=== PATIENT | male | born 1940 | race Caucasian/White ===

== ENCOUNTER 2022-12-16 08:58 | Outpatient (CLI) | payer MEDICARE, SELFPAY ==
--- NOTE | ~2022-12-16 | XR_ITS ---
EXAMINATION: XR chest 2V 12/16/2022 09:18 INDICATION: Cough PROCEDURE: 2 view chest COMPARISON: 12/23/2015 FINDINGS: The lungs are clear. Calcified granuloma right upper thorax. Mild scalloping of the right d iaphragm. The cardiomediastinal silhouette is within normal limits. There are no pleural effusions. There is no pneumothorax suspected. Moderate lower thoracic spondylosis with accentuated kyphosis. IMPRESSION: 1: NO ACUTE CARDIOPULMONARY DISEASE. Reviewed, dictated and finalized at location []
== END 2022-12-16 08:59 | disposition home or self-care (01) ==
PROVIDERS: PCP Family Medicine; Visit Provider Nurse Practitioner Family
DX: R05.9 Cough, unspecified (principal)
CPT/HCPCS: 71046

== ENCOUNTER 2025-02-07 09:18 | Outpatient (CLI) | payer MEDICARE, SELFPAY ==
--- OUTSIDE RECORDS SUMMARY | 2025-02-07 09:27 | XMS_ITS | Continuity of Care Document ---
Author Organization [facility] [place] Address [address] [place] [address] Phone Care Team Providers Care Adventure Education Teacher Name Role Phone Poncho Rae Unavailable Unavailable Procedures Procedure Date Eye Exam & Treatment Ophthalmoscopy Eye Exam, New Patient Advance Directives Directive Yes / No Effective Date File Name No Information Encounters Encounter Description Practice Location Reason(s) For Visit Diagnoses Date Provider Providers Copied on Encounter [facility], [address], [place], [place], [id number], tel:[phone] [facility] No Information 0 Kyra Isaac. [address] [place], [place], [facility], [place]. tel:[phone] Referring Provider: Lemuel richardson, [facility], [facility] [address], [facility]. tel:[phone] [facility], [address], [place], [place], [id number], tel:[phone] [facility] No Information 0 Sierra Hdez. [facility], [facility] [address], [facility], [place]. tel:[phone] Family History Family Member Type Diagnosis Age At Onset No Information Payers Payer name Insurance type Covered republican ID Authoriza tion(s) Medicare [facility] [id number] [facility] CI [id number] Social History Type Description Quantity Date Captured Comments Sex Male Smoking Status No Information Chief Complaint And Reason For Visit No Information Reason For Referral Reason For Referral No Information History Of Present Illness Encounter Date Complaint History Of Prese nt Illness No Information Functional Status Date Functional Assessmen t No Information Instructions Date Instruction Additional Infor mation No Information Assessments Type Assessment Date No Information Patient Care Teams Name Effective Dates (start - stop) Status Members No Information
--- OUTSIDE RECORDS SUMMARY | 2025-02-07 09:27 | XMS_ITS | Patient Health Record ---
Author Organization [facility] - [address] Address [address] [place] [address] Care Team Providers Care Line Out Man Name Role Phone PAWEL CAMACHO Primary Care Provider Reason For Referral No Information Medications Medication SIG (Take, Route, Frequency, Duration) Notes Start Date End Date Status Lisinopril 5 MG 1/2 tablet Oral Once a day; Duration: 30 days Not-Taking Metoprolol Succinate ER 25 MG Oral; Duration: 30 Not-Taking Aspirin 81 81 MG 1 tablet Orally Once a day; Duration: 30 day(s) Active Atorvastatin Calcium 40 MG 1 tablet Oral Once a day; Duration: 30 days Not-Taking Clopidogrel Bisulfate 75 MG 1 tablet Ora lly Once a day; Duration: 30 days Not-Taking Isosorbide Dinitrate 20 MG 1 tablet Oral Twice a day; Duration: 30 days Not-Taking hydroCHLOROthiazide 12.5 MG 1 tablet in the morning Orally Once a day; Duration: 30 day(s) 06/08/2020 Not-Taking Tamsulosin HCl 0.4 MG Oral; Duration: 90 Active Problems Problem Type SNOMED Code ICD Code Onset Dates Problem Status W/U Status Risk Notes Problem Hyperlipidaemia (87847162) Hyperlipidemia, unspecified hyperlipidemia type (E78.5) Active confirmed Problem Chest pain (11366846) Chest pain (R07.9) Active confirmed Problem Coronary artery disease (66941765) CAD (coronary artery disease) (I25.10) Active confirmed Problem Cardiomyopathy associated with another disorder (243575344) Non-ischemic cardiomyopathy (I42.8) Active confirmed Problem Takotsubo cardiomyopathy (396070233) Takotsubo cardiomyopathy (I51.81) Active confirmed Problem Intermittent claudication due to atherosclerosis of artery of limb (finding) (337476602) Atherosclerosis of lower extremity with claudication (I70.219) Active confirmed Plan Of Treatment No Information Insurance Providers Payer Name Payer Address Payer Phone Subscriber Number Group Number Insured Name Patient Relationship to Insured Coverage Start Date Coverage End Date [facility] [address] [address] [place] [address] [id number] Heaven Andrade Self - patient is the insured 0 0 Medical (General) History Medical History History ICD Code Takotsubo cardiomyopathy I51.81 CAD (coronary artery disease) I25.10 Chest pain R07.9 Surgical History Surgery Date(Month/Year) Cath 05/2020 Hospitalization History Reason Date(Month/Year) [facility]-Cath 05/2020
--- NOTE | 2025-02-07 09:30 | ECG_ITS ---
Test Date: 2025-02-07 09:32:49 Measurements Intervals Robbins Rate: 86 P: 71 AL: 159 QRS: 253 QRSD: 137 T: 55 QT: 381 QTc: 457 Interpretive Statements SINUS RHYTHM RIGHT AXIS DEVIATION RIGHT BUNDLE BRANCH BLOCK CONSIDER INFERIOR INFARCT, AGE INDETERMINATE BASELINE ARTIFACT- I, II, III, AVR, AVL, AVF, V4 ABNORMAL ECG No previous ECG available for comparison Electronically Signed On 02-07-2025 09:34:44 CDT by David Castillo D.O.
== END 2025-02-07 09:19 | disposition home or self-care (01) ==
LOC: ANHSURGERY 09:24
PROVIDERS: PCP Family Medicine; Visit Provider Surgery
DX: K43.0 Incisional hernia with obstruction, without gangrene (principal); Z87.891 Personal history of nicotine dependence
CPT/HCPCS: 36415; 86850; 86900; 86901; 93005

== ENCOUNTER 2025-02-12 01:26 | Day surgery (SDC) | payer MEDICARE, SELFPAY ==
--- NOTE | 2025-02-05 13:14 | PC.NURSE ---
Report to the Outpatient Waiting Room, entrance under the green pavilion located off [facility], at time _10 AM on date _02/12/25 . Planned Procedure Time: _1200 NOON .? Time changes happen often and if your time is changed the preop area will call you the afternoon before. - You and your visitor will be asked to self-screen and do not enter if you have any COVID symptoms. Please call surgeon if you need to reschedule. - A mask is optional within the hospital at this time. Patients may have clear liquids (water, carbonated beverages, clear teas, apple juice) until 3 hours prior to surgery ( 9AM) with a maximum of 20 ounces. - No food from midnight until time of surgery and no smoking, or chewing tobacco (or any form of nicotine). No chewing gum, candy or mints. Take only the following medications with a SIP of water on the morning of surgery: __DULOXETINE DO NOT STOP ANY OF YOUR OTHER PRESCRIPTION MEDICATIONS PRIOR TO SURGERY EXCEPT THE FOLLOWING Hold all vitamins and supplements for 3 days per anesthesiologist.LAST DOSE 02/08/25 Medications to discontinue per physician NONE Please no make-up, nail south korean, hairspray, perfume, deodorant, or body powder the day of surgery.? No jewelry (including any body piercings) or valuables the day of surgery, leave them at home.? Please take a shower or bath the night before, or the morning of, surgery with an antibacterial soap.? Wear comfortable, loose fitting clothing.? Children are encouraged to wear pajamas. - Jewelry must be removed prior to entering the operating room.? Rings and piercings that are not removed may be cut off. - The hospital will not accept responsibility for valuables.? - Please leave all valuables, including medications, at home the day of surgery. If you are going home after surgery, a licensed buggy driver must drive you home.? - NO public transportation without another adult if you receive anesthesia. - We recommend that an adult stay with you for 24 hours following discharge. - We also recommend that you do not drive, make important decision, drink alcoholic beverages, or take any drugs that were not prescribed by your health care provider for at least 24 hours after your discharge time. Follow any additional instructions given to you from your surgeon. Telephone instructions given to ___PATIENT_AND WIFE and asked if any additional questions and then verbalized understanding. Patient advised to call surgeon office or pre surgery nurse liaison [phone] if any additional questions.
[2025-02-05 13:35] VITALS: BMI 29.3
[2025-02-12] VITALS (13 sets, daily range): BP systolic 112–153; BP diastolic 57–82; PULSE 85–106; RESP 10–20; TEMP 37.2; O2SAT 90–99
--- OUTSIDE RECORDS SUMMARY | 2025-02-12 01:30 | XMS_ITS | Continuity of Care Document ---
Author Organization [facility] [address] [place] [address] Phone Care Team Providers Care Director Of Rooms Name Role Phone Poncho Rae Unavailable Unavailable Procedures Procedure Date Eye Exam & Treatment Ophthalmoscopy Eye Exam, New Patient Advance Directives Directive Yes / No Effective Date File Name No Information Encounters Encounter Description Practice Location Reason(s) For Visit Diagnoses Date Provider Providers Copied on Encounter [facility], [address], [place], [place], [address], tel:[phone] [facility] No Information 0 Kyra Isaac. [address] [place], [place], [place], [place]. tel:[phone] Referring Provider: Lemuel richardson, [facility] [address], [place]. tel:[phone] [facility], [address], [place], [place], [address], tel:[phone] [facility] No Information 0 Sierra Hdez. [facility] [address], [place], [place]. tel:[phone] Family History Family Member Type Diagnosis Age At Onset No Information Payers Payer name Insurance type Covered republican ID Authoriza tion(s) Medicare [facility] [id number] [facility] CI [id number] Social History Type Description Quantity Date Captured [...]
--- OUTSIDE RECORDS SUMMARY | 2025-02-12 01:30 | XMS_ITS | Patient Health Record ---
Author Organization [facility] Main Address [address] [place] [address] Care Team Providers Care Manager Account Management Name Role Phone PAWEL CAMACHO Primary Care Provider [phone] Reason For Referral No Information Medications Medication [...] Status W/U Status Risk Notes Problem Hyperlipidaemia (37860072) Hyperlipidemia, unspecified hyperlipidemia type (E78.5) Active confirmed Problem Chest pain (28503263) Chest pain (R07.9) Active confirmed Problem Coronary artery disease (59523384) CAD (coronary artery disease) (I25.10) Active confirmed Problem Cardiomyopathy associated with another disorder (170289778) Non-ischemic cardiomyopathy (I42.8) Active confirmed Problem Takotsubo cardiomyopathy (881882353) Takotsubo cardiomyopathy (I51.81) Active confirmed Problem Intermittent claudication due to atherosclerosis of artery of limb (finding) (406276403) Atherosclerosis of lower extremity with claudication (I70.219) Active confirmed Plan Of Treatment No Information Insurance Providers Payer Name Payer Address Payer Phone Subscriber Number Group Number Insured Name Patient Relationship to Insured Coverage Start Date Coverage End Date [facility] MEDICARE ADVANT [address] [address] [place] [address] [id number] Heaven Andrade Self - patient is the insured 0 0 Medical (General) History Medical History History ICD Code Takotsubo cardiomyopathy I51.81 CAD (coronary artery disease) I25.10 Chest pain R07.9 Surgical History Surgery Date(Month/Year) Cath 05/2020 Hospitalization History Reason Date(Month/Year) [facility]-Cath 05/2020
[2025-02-12] MEDS: LACTATED RINGERS 1,000 ML 30 ML IV CONT ×2 (10:45→14:30)
[2025-02-12] MEDS: KETOROLAC 15 MG/ML VIAL (*BKC) IV PUSH (10:45)
[2025-02-12] MEDS: ACETAMINOPHEN 500 MG TABLET 1000 MG PO (10:45)
--- NOTE | 2025-02-12 11:48 | PM.IMHP ---
H&P: HPI History of Present Illness Date/Time: 02/12/25 11:48 Chief Complaint: Incarcerated incisional hernia Narrative: Heaven is an 84 y/o male who presents for evaluation of an umbilical bulge at the request of Dr. Romero. He reports symptoms starting about 30 years ago. He feels the area has increased in size. The bulge is reducible. He is not experiencing any pain. He is having regular BM's without difficulty. He has a surgical history of laparoscopic hiatal hernia repair years ago. Review of Systems Review of Systems: All systems reviewed & are unremarkable except as noted in HPI and below PMFSH Past Medical History Medical History Hx of hiatal hernia GERD (gastroesophageal reflux disease) Arthritis Overweight with body mass index (BMI) of 28 to 28.9 in adult Chronic low back pain Food allergy Depression Diarrhea Constipation Shortness of breath Ear pain Hearing loss Vision abnormalities Dizziness Weight loss Surgical History Surgical History History of arthroplasty of left knee History of total left hip arthroplasty Family History Family History Mother Patient's mother is in good health Heart disease Father Heart disease Sibling Heart disease Other Malignant neoplasm Social History Social History Smoking packs per day: 1.5 Smoking cigarettes per day: 30.0 Years smoked: 40 Smoking pack-years: 60.00 Smoking status: Former smoker Tobacco type: cigarettes Second hand tobacco smoke exposure: Yes Smoking end date: 07/03/92 Alcohol intake: former Alcohol use details: quit drinking in 1992. 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 Gender identity (if verbalized by the patient): Male Sexual Orientation (if Verbalized by the Patient): Straight or Heterosexual Spiritual care concerns: No Agree to blood products: Yes Meds Home Medications and Allergies Home Medications ?Medication ?Instructions ?Recorded ?Confirmed ?Type albuterol sulfate 90 mcg/actuation 1 inh inhalation Q4H PRN shortness 12/19/23 02/05/25 Rx aerosol inhaler (ProAir HFA) of breath or wheezing #6.7 grams duloxetine 30 mg capsule,delayed 30 mg PO DAILY #30 caps 01/01/25 02/12/25 Rx release tamsulosin 0.4 mg capsule 0.4 mg PO BID #180 caps 01/23/25 02/12/25 Rx calcium 600 mg (as 1 tablet PO DAILY 02/05/25 02/12/25 History carbonate)-vitamin D3 10 mcg (400 unit) tablet (Calcium 600 + D(3)) magnesium gluconate 27 mg 27 mg PO DAILY 02/05/25 02/12/25 History magnesium (500 mg) tablet lgljvzuw-zpghhlug-fnwvh acid 500 1 tablet PO DAILY 02/05/25 02/12/25 History mcg-lutein 5 mg-zeaxanth 1 mg tablet (Macular Vitamin) hydrocodone 5 mg-acetaminophen 325 1 tablet PO Q8H PRN pain #90 tabs 02/11/25 Rx mg tablet Allergies Allergy/AdvReac Type Severity Reaction Status Date / Time chlorpheniramine Allergy Unknown Unknown Verified 02/12/25 11:00 pseudoephedrine Allergy Unknown Unknown Verified 02/12/25 11:00 Vital Signs Vital Signs - 24 hr 02/12/25 10:45 Temperature 37.2 C Pulse Rate 85 Respiratory Rate 16 Blood Pressure 153/82 H Pulse Oximetry 99 Oxygen Delivery Room Air Exam Const: General: cooperative, comfortable and no acute distress Resp: Auscultation: clear to auscultation bilaterally Cardio: Rate: regular rate Rhythm: regular rhythm GI: Inspection: normal to inspection, non-distended and visible herniation GI Palp: Yes abdominal tenderness, Yes Soft to palpation and Yes Hernia present Other: incarcerated incisional hernia periumbilical measuring approximately 6 cm Assessment and Plan Assessment and plan (1) Incarcerated incisional hernia: Code(s): K43.0 - Incisional hernia with obstruction, without gangrene Status: Acute Assessment and Plan: will set up for robotic assisted incarcerated incisional hernia repair with mesh
--- NOTE | 2025-02-12 11:50 | WPDHPUPDATE1 ---
History and Physical Update Update Date/Time: 02/12/25 11:50 History and Physical has been reviewed, including an updated exam of the patient. There are NO changes in the patient's condition. Risks, benefits, and alternatives have been discussed and questions answered. Patient agrees to proceed with procedure.
--- NOTE | 2025-02-12 11:56 | WPDANESEPPF ---
Anes - Initial Pre Proc Eval Procedure: Operation Date: 02/12/25 12:00 Proposed Procedures p Robotic Incarcerated Incisional Hernia Repair with Mesh - Karla Hernandez MD Date/Time: 02/12/25 11:56 Surgeon: Karla Hernandez MD Pre Op Diagnosis: Incarcerated Inc Hernia Patient Data Age: 84 Gender: M Height: 1.8 m Weight: 92.8 kg Last Vital Signs Temp 98.9 F 02/12/25 10:45 Pulse 85 02/12/25 10:45 Resp 16 02/12/25 10:45 BP 153/82 H 02/12/25 10:45 Pulse Ox 99 02/12/25 10:45 O2 Del Method Room Air 02/12/25 10:45 Allergies Allergy/AdvReac Type Severity Reaction Status Date / Time chlorpheniramine Allergy Unknown Unknown Verified 02/12/25 11:00 pseudoephedrine Allergy Unknown Unknown Verified 02/12/25 11:00 Home Medications ?Medication ?Instructions ?Recorded ?Confirmed ?Type albuterol sulfate 90 mcg/actuation 1 inh inhalation Q4H PRN shortness 12/19/23 02/05/25 Rx aerosol inhaler (ProAir HFA) of breath or wheezing #6.7 grams duloxetine 30 mg capsule,delayed 30 mg PO DAILY #30 caps 01/01/25 02/12/25 Rx release tamsulosin 0.4 mg capsule 0.4 mg PO BID #180 caps 01/23/25 02/12/25 Rx calcium 600 mg (as 1 tablet PO DAILY 02/05/25 02/12/25 History carbonate)-vitamin D3 10 mcg (400 unit) tablet (Calcium 600 + D(3)) magnesium gluconate 27 mg 27 mg PO DAILY 02/05/25 02/12/25 History magnesium (500 mg) tablet kgumoztj-rvvmlkwh-yemxx acid 500 1 tablet PO DAILY 02/05/25 02/12/25 History mcg-lutein 5 mg-zeaxanth 1 mg tablet (Macular Vitamin) hydrocodone 5 mg-acetaminophen 325 1 tablet PO Q8H PRN pain #90 tabs 02/11/25 Rx mg tablet Patient hx anesthesia problems: none Family hx anesthesia problems: none Results Review: All pre-operative results and documents have been reviewed as part of the pre-operative evaluation. [facility] Past Medical History Medical History Hx of hiatal hernia GERD (gastroesophageal reflux disease) Arthritis Overweight with body mass index (BMI) of 28 to 28.9 in adult Chronic low back pain Food allergy Depression Diarrhea Constipation Shortness of breath Ear pain Hearing loss Vision abnormalities Dizziness Weight loss Surgical History Surgical History History of arthroplasty of left knee History of total left hip arthroplasty Family History Family History Mother Patient's mother is in good health Heart disease Father Heart disease Sibling Heart disease Other Malignant neoplasm Social History Social History Smoking packs per day: 1.5 Smoking cigarettes per day: 30.0 Years smoked: 40 Smoking pack-years: 60.00 Smoking status: Former smoker Tobacco type: cigarettes Second hand tobacco smoke exposure: Yes Smoking end date: 07/03/92 Alcohol intake: former Alcohol use details: quit drinking in 1992. 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 Gender identity (if verbalized by the patient): Male Sexual Orientation (if Verbalized by the Patient): Straight or Heterosexual Spiritual care concerns: No Agree to blood products: Yes Anes - Eval Final PreProcedure Day of Procedure 02/12/25 11:56 Patient weight: normal Heart: regular rate and rhythm Lungs: clear to auscultation Airway: Mallampati scale class II Neurological: alert and oriented Last oral intake: >/= 8 hours ASA classification: III Emergent: no Anesthetic plan: proceed Anesthesia type and monitoring: general ETT and standard monitoring Results Review: All pre-operative results and documents have been reviewed as part of the pre-operative evaluation. Informed Consent: The patient's anesthetic plan and its attendant risks and benefits were discussed with the patient/family/POA. Questions were solicited and answers provided to the satisfaction of the patient/family/POA.
[2025-02-12] MEDS: ceFAZolin 2 GM in SODIUM CHLORIDE 0.9% IV 50 ML 100 ML IVPB (12:18)
--- NOTE | 2025-02-12 12:34 | W.PM.PROC2 ---
Procedure Note - Detailed Date of Procedure 02/12/25 Pre-op Diagnosis incarcerated periumbilical incisional hernia measuring 6 cm Post-op Diagnosis Same Procedure Performed Robotic assisted incarcerated periumbilical incisional hernia repair measuring 6 cm with mesh, unilateral left myofascial release Surgeon Karla Hernandez MD Anesthesia General and Local Indications 84-year-old male presenting to the office with a large incisional hernia from previous hiatal hernia repair Findings incarcerated periumbilical incisional hernia repair, defect measuring 6 cm, iatrogenic dermal incision during cross over Description of Procedure The patient was taken to the operating room and placed in the supine position. After adequate induction of general anesthesia, the patient was prepped and draped in the normal sterile fashion. A time-out was then done to verify the patient's identity, as well as the procedure being performed. I began by placing a 8 mm port in the left upper quadrant, this was done via the Optiview trocar under direct visualization. Once in the intra-abdominal cavity, the abdomen was insufflated with CO2 gas. After adequate pneumoperitoneum was achieved, the camera was placed into this trocar site and the abdomen was examined. There was noted to be an incarcerated periumbilical incisional hernia with a large amount of omentum incarcerated within the hernia. Under direct visualization, I placed a further 8 mm left mid abdominal port, as well as a 8 mm left lower abdominal port. The patient was then positioned and the robot was docked to these trocar sites. I then scrubbed out and proceeded with the surgery at the robotic console. I began by reducing the incarcerated omentum out of this hernia. This was done carefully with gentle traction and manual exterior pressure. At this point I measured 6 cm lateral to the hernia defect. I then gained access by making a flap into the left retro muscular space. The 1st myofascial release was started with posterior rectus sheath released off the left rectus muscle. This dissection was performed all the way to the medial edge rectus muscle, the dissection was continued from the costal margin into the space Retzius. The upper medial aspect of the posterior sheath was then incised and we entered the preperitoneal space and transitioned to the contralateral retro muscular space. This was difficult given the thinness and laxity of the dermis in this area. A small dermal opening was made during this dissection. Given this finding, the decision was made not to do the contralateral myofascial release. I then closed the flap using a 2-0 Vicryl V lock. I then closed the 6 cm defect primarily using an 0 Stratafix suture. The defect was much easier to close given the unilateral myofascial release. Once closed, a 15 x 10 cm Ventralight mesh was placed into the abdominal cavity. This was positioned over the defect. This gave us good wide local coverage of the defect. This was sutured into place with 2-0 Vicryl V lock x2. The abdomen was then desufflated and the robot was then docked. I then closed the iatrogenic open with 3-0 Vicryl suture in the subcutaneous level and 4-0 Monocryl subcuticular suture at the dermal level. All port sites were then closed with 4-0 Monocryl subcuticular suture. The patient tolerated the procedure and was extubated postoperatively. He will be sent to the recovery room in stable condition. Estimated Blood Loss 25 Pathology None sent Complications No immediate complications Condition Stable Disposition PACU
[2025-02-12] MEDS: BUPIVACAINE/EPINEPHRINE 0.5% 50 ML VIAL 30 ML INFILTRATE (14:18)
[2025-02-12] MEDS: fentaNYL CITRATE INJ (*CRX) 100 MCG/2 ML VIAL 25 MCG IV PUSH ×8 (15:10→15:32)
[2025-02-12] MEDS: HYDROmorphone HCL INJ (*CRX) 1 MG/ML SYR 0.25 MG IV PUSH ×4 (15:37→16:00)
[2025-02-12] MEDS: ONDANSETRON INJ 4 MG/2 ML VIAL IV PUSH (16:04)
[2025-02-12] MEDS: oxyCODONE HCL (*CRX) 5 MG TAB IR PO (17:15)
--- NOTE | 2025-02-12 18:02 | SUR.PHASEII ---
Vitals are stable. Patient is unhooked from monitors and waiting for spouse to arrive for pick-up.
== END 2025-02-12 18:10 | disposition home or self-care (01) ==
PROVIDERS: PCP Family Medicine; Visit Provider Surgery
PROC: (CPT 49594; principal; 2025-02-12 12:00)
DX: K43.0 Incisional hernia with obstruction, without gangrene (principal); K21.9 Gastro-esophageal reflux disease without esophagitis; F32.A Depression, unspecified; M19.90 Unspecified osteoarthritis, unspecified site; G89.29 Other chronic pain; M54.50 Low back pain, unspecified; Z79.51 Long term (current) use of inhaled steroids; Z79.891 Long term (current) use of opiate analgesic; Z98.890 Other specified postprocedural states; Z87.891 Personal history of nicotine dependence; Z87.19 Personal history of other diseases of the digestive system; Z80.9 Family history of malignant neoplasm, unspecified; Z82.49 Family history of ischemic heart disease and other diseases of the circulatory system
CPT/HCPCS: 49594; S2900; J0690; A9270; C1781; J0360; J1171; J1885; J2003; J2405; J2704; J3010; J7030; J7120